=== PATIENT | male | born 1955 | race Caucasian/White ===

== ENCOUNTER 2016-11-01 19:37 | Inpatient (IN) | payer OTHER ==
[2016-11-01 19:50] VITALS: BMI 16.7
--- NOTE | 2016-11-01 20:17 | PDOC ---
History of Present Illness - General History Source: Patient <Kulwant Wong - Last Filed: 11/02/16 00:26> - General History Source: Patient Exam Limitations: No Limitations - History of Present Illness Initial Comments: 11/01/16 21:05 The patient is a 61 year old male with significant past medical history of hypertension, COPD, GERD, prostate CA, and EtOH abuse who presents to the ED with few days of lower leg weakness. Patient was seen here in the ER for weakness and intoxicated where he was admitted on 09/05 and discharged on 09/14. After his discharge he was sent to [facility] for subacute therapy and recently discharge there about 2 weeks ago and sent home. Patient admits he started drink alcohol again after his discharge. His last drink was about 48 hours ago. He reports multiple falls and feeling somewhat dizzy for the past 2 weeks, which he states is related to drinking alcohol. He denies headache, LOC, paresthesias of the legs, and recent trauma to head within the past month. Patient reports his baseline is able to ambulate without assistance. However, for the past few days he developed weakness in his lower extremities with bladder/bowel incontinence. As per sister, at bedside, patient has not been himself recently and appears to be somewhat confused. The patient denies fever, diaphoresis, chills, cough, SOB, and chest pain. The patient denies abdominal pain, nausea, vomiting, and diarrhea. The patient denies dysuria, hematuria, urgency, and frequency. Allergies: NKDA Social History: Current smoker (PPD); EtOH abuse; cocaine use Other Past Medical History: subarachnoid hemorrhage after a fall, ulcers in esophagus, hepatomegaly, and anxiety Past Surgical History: Appendectomy PCP: Dr. Lorenzo Beltran <Doris Zuniga - Last Filed: 11/02/16 00:45> - General Chief Complaint: Weakness Stated Complaint: WEAKNESS Time Seen by Provider: 11/01/16 20:13 Past History - Past Medical History Cancer: Yes (prostate) CVA: (SUBARACHNOID HEMORRHAGE AFTER A FALL) COPD: Yes GI Disorders: Yes (gerd, ulcers in esophagus) Disorders: No HTN: Yes Liver Disease: (HEPATOMEGALY; ABNORMAL LIVER FUNCTION TEST) Psychiatric Problems: Yes (anxiety) Thyroid Disease: No Other medical history: ETOH/Cocaine substance abuse - Surgical History Appendectomy: Yes (at age 3) - Immunization History Immunization Up to Date: Yes - Psycho/Social/Smoking Cessation Hx Anxiety: Yes Suicidal Ideation: No Smoking History: Unknown if ever smoked Have you smoked in the past 12 months: Yes Number of Cigarettes Smoked Daily: 30 'Breaking Loose' booklet given: 09/05/16 Hx Alcohol Use: Yes Drug/Substance Use Hx: Yes Substance Use Type: Alcohol, Cocaine Hx Substance Use Treatment: No <Kulwant Wong - Last Filed: 11/02/16 00:26> <Doris Zuniga - Last Filed: 11/02/16 00:45> - Past Medical History Allergies/Adverse Reactions: Allergies Allergy/AdvReac Type Severity Reaction Status Date / Time No Known Allergies Allergy Verified 11/01/16 19:45 Home Medications: Ambulatory Orders Escitalopram Oxalate [Lexapro -] 20 mg PO DAILY 09/05/16 Pantoprazole Sodium [Protonix -] 40 mg PO DAILY 09/05/16 Multivitamins [Multivit ([facility] Formulary)] 1 tab PO DAILY #60 tab 09/14/16 Thiamine HCl [Vitamin B1 -] 100 mg PO DAILY #30 tablet 09/14/16 Review of Systems - Review of Systems Able to Perform ROS?: Yes Comments:: 11/01/16 21:05 CONSTITUTIONAL: Absent: fever, chills, diaphoresis, malaise, loss of appetite HEENT: Absent: rhinorrhea, nasal congestion, throat pain, throat swelling, difficulty swallowing, mouth swelling, ear pain, eye pain, visual Changes CARDIOVASCULAR: Absent: chest pain, syncope, palpitations, irregular heart rate, lightheadedness , peripheral edema RESPIRATORY: Absent: cough, shortness of breath, dyspnea with exertion, orthopnea, wheezing, stridor, hemoptysis GASTROINTESTINAL: Absent: abdominal pain, abdominal distension, nausea, vomiting, diarrhea, constipation, melena, hematochezia GENITOURINARY: Absent: dysuria, frequency, urgency, hesitancy, hematuria, flank pain, genital pain MUSCULOSKELETAL: Absent: myalgia, arthralgia, joint swelling SKIN: Absent: rash, itching, pallor NEUROLOGIC: +bladder/bowel incontinence, dizziness, lower extremities weakness Absent: headache, focal paresthesias, seizure PSYCHIATRIC: Absent: anxiety, depression, suicidal or homicidal ideation, hallucinations. <Doris Zuniga - Last Filed: 11/02/16 00:45> *Physical Exam - Vital Signs Last Vital Signs Temp Pulse Resp BP Pulse Ox 97.6 F 122 H 20 120/77 99 11/01/16 19:43 11/01/16 19:43 11/01/16 19:43 11/01/16 19:43 11/01/16 19:43 <Kulwant Wong - Last Filed: 11/02/16 00:26> - Vital Signs Last Vital Signs Temp Pulse Resp BP Pulse Ox 97.6 F 122 H 20 120/77 99 11/01/16 19:43 11/01/16 19:43 11/01/16 19:43 11/01/16 19:43 11/01/16 19:43 - Physical Exam Comments: 11/01/16 21:05 GENERAL: Well developed, well nourished. Awake and alert. No acute distress. HEENT: Normocephalic, atraumatic. No racoon or quevedo signs. PERRLA, EOMI. No conjunctival pallor. Sclera are non-icteric. Moist mucous membranes. Oropharynx is clear. No hemotympanum. NECK: Supple. Full ROM. No JVD. Carotid pulses 2+ and symmetric, without bruits. No thyromegaly. No lymphadenopathy. CARDIOVASCULAR: Regular rate and rhythm. No murmurs, rubs, or gallops. Distal pulses are 2+ and symmetric. PULMONARY: No evidence of respiratory distress. Lungs clear to auscultation bilaterally. No wheezing, rales or rhonchi. ABDOMINAL: Soft. Non-tender. Non-distended. No rebound or guarding. No organomegaly. Normoactive bowel sounds. MUSCULOSKELETAL Limited ROM of left leg secondary to decreased muscle strength. No bony deformities or tenderness. No CVA tenderness. EXTREMITIES: No cyanosis. No clubbing. +1 pitting edema ankles bilaterally. No calf tenderness. SKIN: Warm and dry. Normal capillary refill. No rashes. No jaundice. Scattered scabbing and light ecchymosis throughout the body. NEUROLOGICAL: Alert, awake, appropriate. Left leg decreased plantar and dorsiflexion. 3/5 muscle strength of the left lower extremity. Good passive ROM. Active ROM is limited due to muscle strength. Good achilles reflex and patellar reflex. Sensation intact. Normal speech. PSYCHIATRIC: Cooperative. Good eye contact. Appropriate mood and affect. <Doris Zuniga - Last Filed: 11/02/16 00:45> Heart Score/ECG Review - ECG Impressions Comment:: 11/01/16 22:01 NSR @89bpm Prolonged QT Abnormal ECG <Doris Zuniga - Last Filed: 11/02/16 00:45> ED Treatment Course - LABORATORY CBC & Chemistry Diagram: 11/01/16 21:03 11/01/16 21:03 <Kulwant Wong - Last Filed: 11/02/16 00:26> - LABORATORY CBC & Chemistry Diagram: 11/01/16 21:03 11/01/16 21:03 - RADIOLOGY Radiograph Interpretation: 11/02/16 00:13 EXAM: CT LUMBAR SPINE WITHOUT CONTRAST Reviewed by Imaging coding consultant: Degnerative disc disease and posterior disc-osteophyte complex L5-S1 contributing to minimal to moderate canal stenosis. No noncontrast CT evidence of disc herniation. Moderate to marked right neural foraminal stenosis L1-L2. Minimal to moderate bilateral neural foraminal stenosis L5-S1. Congenitally short pedicles incidentally noted. No acute fracture or malalignment. Chronic compression fracture L1. Hemangioma L2. Calcified periportal lymph nodes. <Doris Zuniga - Last Filed: 11/02/16 00:45> Medical Decision Making - Medical Decision Making 11/02/16 00:26 Dr. Wong: The scribe's documentation has been prepared under my direction and personally reviewed by me in its entirery. I confirm that the note above accurately reflects all work, treatment, procedures, and medical decision making performed by me. <Kulwant Wong - Last Filed: 11/02/16 00:26> - Medical Decision Making 11/02/16 00:[address] Cecilia Pond (via answering service) at 24:20 Awaiting call back Patient's case discussed with Dr. Pond at 24:26 <Doris Zuniga - Last Filed: 11/02/16 00:45> *DC/Admit/Observation/Transfer - Discharge Dispostion Admit: Yes <Kulwant Wong - Last Filed: 11/02/16 00:26> - Attestations Scribe Attestion: 11/01/16 21:06 Documentation prepared by Doris Zuniga, acting as medical orderly for Kulwant Wong MD <oDris Zuniga - Last Filed: 11/02/16 00:45> Diagnosis at time of Disposition: Multiple falls, Weakness - Referrals Referrals: Lorenzo Beltran MD [Primary Care Provider] -
[2016-11-01 21:12] LABS: BASOPHIL 0.9 % (0-2.0); EOSINOPHIL 0.1 % (0-4.5); MCHC 34.1 g/dl (32.0-35.9); MEAN CELL VOLUME 102.5 fl (80-96); NEUTROPHILS 71.9 % (42.8-82.8); PLATELET COUNT 185 K/MM3 (134-434); RDW 13.4 % (11.9-15.9); WHITE BLOOD COUNT 6.5 K/mm3 (4.0-10.0)
[2016-11-01 21:22] LABS: INR 1.23 (0.82-1.09); PROTHROMBIN TIME (PATIENT) 13.6 SEC (9.98-11.88)
[2016-11-01 22:44] LABS: URINE APPEARANCE CLEAR; URINE BILIRUBIN NEGATIVE (NEGATIVE); URINE BLOOD NEGATIVE (NEGATIVE); URINE COLOR DKYELLOW; URINE GLUCOSE (UA) NEGATIVE (NEGATIVE); URINE KETONE 1+ (NEGATIVE); URINE LEUK ESTERASE NEGATIVE (NEGATIVE); URINE NITRITE NEGATIVE (NEGATIVE); URINE UROBILINOGEN 4.0 E.U/dl E.U./dl (0.2-1.0)
[2016-11-01 22:49] LABS: URINE PROTEIN 1+ (NEGATIVE)
[2016-11-01 22:53] LABS: URINE BACTERIA RARE /hpf (NONE SEEN); URINE HYALINE CAST 1 /lpf; URINE RBC 2 /hpf (0-3); URINE WBC 1 /hpf (3-5)
[2016-11-01 23:43] LABS: ALBUMIN 3.4 g/dl (3.4-5.0); ALK PHOS 135 U/L (45-117); ANION GAP 17 (8-16); BILIRUBIN,TOTAL 1.7 mg/dL (0.2-1.0); CALCIUM 8.6 mg/dL (8.5-10.1); CO2 27 mmol/L (21-32); CREATININE 0.9 mg/dL (0.7-1.3); GLUCOSE,RANDOM 158 mg/dL (74-106); MAGNESIUM 1.2 mg/dL (1.8-2.4); SGOT/AST 66 U/L (15-37); SGPT/ALT 28 U/L (12-78); TOT PROT 7.2 g/dl (6.4-8.2); TROPONIN I < 0.02 ng/ml (0.00-0.05)
[2016-11-02 05:50] LABS: TROPONIN I < 0.02 ng/ml (0.00-0.05)
[2016-11-02] MEDS ORDERED: chlordiazePOXIDE HCL 25 MG CAPSULE PO PRN (09:14)
[2016-11-02] MEDS: D5-1/2NS+20 MEQ KCL - 1,000 ML IV SCH (11:03)
[2016-11-02] MEDS: PANTOPRAZOLE 40 MG TABLET (FP) PO SCH (11:05)
[2016-11-02] MEDS: THIAMINE HCL 100 MG TABLET (FP) PO SCH (11:05)
[2016-11-02] MEDS: MULTIVITAMINS (DAILY MVI) TABLET (FP) PO SCH (11:05)
[2016-11-02] MEDS: ESCITALOPRAM OXALATE 20 MG TABLET (FP) PO SCH (11:05)
--- NOTE | 2016-11-02 11:30 | PN ---
Progress Note (short form) - Note Progress Note: NEUROSURGERY CONSULT DICTATED Chart reviewed Head and LS spine CT reviewed 61 yo with hypertension, COPD, GERD, prostate CA, and EtOH abuse/dependence who presents to the ED with c/o lower leg weakness. Was at [facility] for weakness and intoxicated where he was admitted on 09/05 and discharged on 09/14 to [facility] for subacute rehab. About 2 weeks ago and sent home and started drinking alcohol again. Last drink was reported to be about 48 hours ago. He reports multiple falls and feeling somewhat dizzy. He denies headache, LOC, paresthesias of the legs, and recent trauma to head within the past month. Patient reports his baseline is able to ambulate without assistance. For the past few days he developed weakness in his L LE with no bladder/bowel incontinence. PE: AF, VSS General- thin, unremarkable, no sign of DVT; tr L ankle edema, 1-2 pulses with good capillary refill CN- intact; Motor- 5/5 ecept L EHL/TA/ev 2-3; Sensation- intact to LT and proprioception; DTR-2-3+ B except diminished B ankle reflex Back- no tenderness, Negative SLR to [address]- moderate atrophy and periventricular small vessel dz, no bleed, no HCP LS spine CT- chronic L1 compression fx (anterior wedging of 35%) with L1-2 foramenal narrowing; L5-S1 broad based disc bulge with marked DDD, mild R > L foramenal narrowing; No significant left sided compressive pathology noted Cr- 0.9, lactic acid- 2.685 Chronic L1 osteoporotic (alcohol/nutrition related also) fracture L5-S1 DDD 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
--- NOTE | 2016-11-02 12:09 | HP ---
Admitting History and Physical - Primary Care Physician PCP: Lorenzo Beltran - Admission Chief Complaint: weakness History of Present Illness: ER HISTORY 11/01/16 21:05 The patient is a 61 year old male with significant past medical history of hypertension, COPD, GERD, prostate CA, and EtOH abuse who presents to the ED with few days of lower leg weakness. Patient was seen here in the ER for weakness and intoxicated where he was admitted on 09/05 and discharged on 09/14. After his discharge he was sent to [facility] for subacute therapy and recently discharge there about 2 weeks ago and sent home. Patient admits he started drink alcohol again after his discharge. His last drink was about 48 hours ago. He reports multiple falls and feeling somewhat dizzy for the past 2 weeks, which he states is related to drinking alcohol. He denies headache, LOC, paresthesias of the legs, and recent trauma to head within the past month. Patient reports his baseline is able to ambulate without assistance. However, for the past few days he developed weakness in his lower extremities with bladder/bowel incontinence. As per sister, at bedside, patient has not been himself recently and appears to be somewhat confused. Pt seen by me on the floors- After dc from [facility] about three weeks ago, he resumed drinking again- his last drink was on Sunday and last cigarette was on Sunday. He was able to walk on his own without any ambulatory aides upon dc from [place]. he states that his left leg was weak after dc from [facility], he also has been incontinent of bladder and bowel for about a week. His nutritional status has declined when he was released from SNF. He admits he has been feeling weak and that he feels strong today after receiving iv fluids and eating meals. He lives by himself He fell about 4 times for about 2 weeks. History Source: Patient Limitations to Obtaining History: No Limitations - Past Medical History QUALITY CONTROL DIRECTOR: Yes: Other (Subarrachnoid hemorrhage from fall with head trauma) Cardiovascular: Yes: HTN Pulmonary: Yes: COPD Renal/: Yes: BPH, Cancer (PROSTATE) Psych: Yes: Depression ( OF PARTNER) - Smoking History Smoking history: Former smoker Have you smoked in the past 12 months: Yes Aproximately how many cigarettes per day: 30 - Alcohol/Substance Use Hx Alcohol Use: Yes History of Substance Use: reports: Cocaine - Social History ADL: Family Assistance History of Recent Travel: No Home Medications - Allergies Allergies/Adverse Reactions: Allergies Allergy/AdvReac Type Severity Reaction Status Date / Time No Known Allergies Allergy Verified 11/01/16 19:45 - Home Medications Home Medications: Ambulatory Orders Escitalopram Oxalate [Lexapro -] 20 mg PO DAILY 09/05/16 Pantoprazole Sodium [Protonix -] 40 mg PO DAILY 09/05/16 Multivitamins [Multivit ([facility] Formulary)] 1 tab PO DAILY #60 tab 09/14/16 Thiamine HCl [Vitamin B1 -] 100 mg PO DAILY #30 tablet 09/14/16 Family Disease History - Family Disease History Family Disease History: Heart Disease: Father, Sister Review of Systems - Review of Systems Constitutional: reports: Weakness. denies: Chills, Fever, Loss of Appetite Physical Examination Vital Signs: Vital Signs Temperature 97.9 F 11/02/16 07:00 Pulse Rate 83 11/02/16 07:00 Respiratory Rate 20 11/02/16 07:00 Blood Pressure 150/89 11/02/16 07:00 O2 Sat by Pulse Oximetry (%) 99 11/02/16 06:56 Constitutional: Yes: No Distress, Calm Cardiovascular: Yes: Regular Rate and Rhythm Respiratory: Yes: Diminished Gastrointestinal: Yes: Normal Bowel Sounds, Soft. No: Distention, Tenderness Edema: No Neurological: Yes: Alert, Oriented, Weakness, Other (left foot drop +,strength is good on flexion but weak extension of left foot.Sensation normal). No: Numbness, Tremors Psychiatric: Yes: Alert, Oriented Imaging - Results Chest X-ray: Image Reviewed Cat Scan: Report Reviewed (CT head- negative, CT LS spine -- DJD, osteoporosis, disc bulge, spinal stenosis, compression fracture) Problem List - Problems (1) Depression Code(s): F32.9 - MAJOR DEPRESSIVE DISORDER, SINGLE EPISODE, UNSPECIFIED Qualifiers: Depression Type: major depressive disorder Major depression recurrence : recurrent Psychotic features: without psychotic features (2) H/O fall Code(s): Z91.81 - HISTORY OF FALLING (3) Multiple falls Code(s): R29.6 - REPEATED FALLS (4) Weakness Code(s): R53.1 - WEAKNESS (5) HTN (hypertension) Code(s): I10 - ESSENTIAL (PRIMARY) HYPERTENSION Qualifiers: Hypertension type: essential hypertension Qualified Code(s): I10 - Essential (primary) hypertension (6) Peroneal neuropathy Code(s): G57.30 - LESION OF LATERAL POPLITEAL NERVE, UNSPECIFIED LOWER LIMB Qualifiers: Laterality: left Qualified Code(s): G57.32 - Lesion of lateral popliteal nerve, left lower limb (7) Alcohol dependence with uncomplicated withdrawal Code(s): F10.230 - ALCOHOL DEPENDENCE WITH WITHDRAWAL, UNCOMPLICATED Assessment/Plan PLAN -- CT scan results discussed with pt -- counselled the patient that alcohol intake is likely cause of weakness -- spoke with Neurosurgery -- Physiatry eval for EMG -- Librium as needed- does not appear to be in withdrawal. -- Nutrition counselling -- check folate, B12 -- no sensory deficits -- PT eval -- DVT prophylaxis-- Lovenox
--- NOTE | 2016-11-02 14:14 | EKG ---
Test Reason : Blood Pressure : / mmHG Vent. Rate : 089 BPM Atrial Rate : 089 BPM P-R Int : 124 ms QRS Dur : 078 ms QT Int : 412 ms P-R-T Axes : 073 061 070 degrees QTc Int : 501 ms NORMAL SINUS RHYTHM PROLONGED QT ABNORMAL ECG WHEN COMPARED WITH ECG OF 05-SEP-2016 03:47, NO SIGNIFICANT CHANGE WAS FOUND Confirmed by SHIRLEY PERRY MD ([id number]) on 11/02/2016 2:13:59 PM Referred By: Confirmed By:SHIRLEY PERRY MD
--- NOTE | 2016-11-02 15:09 | CONS ---
DATE OF CONSULTATION: 11/02/2016 REQUESTING PHYSICIAN: Cecilia Pond MD CHIEF COMPLAINT: Left lower extremity weakness. HISTORY OF PRESENT ILLNESS: The patient is a 61-year-old, right-handed male with history of alcohol abuse/dependence, COPD, hypertension, gastroesophageal reflux disease, and prostate CA who had complained of a several-day history of increasing leg weakness. The patient was admitted about 2 months ago and was discharged in early September to [facility] for rehabilitation. He went home a couple weeks ago and started drinking alcohol again. He has been falling at home. He stated that even before his prior admission, he was falling, likely secondary to intoxication. He has also used recreational drugs in the past but he stated that he has not used any for the last 2 months. He was feeling dizzy. He denied any headache, loss of consciousness, paresthesia, numbness of the legs or sciatica. He has no lower back pain. He has no bowel or bladder incontinence. Weakness has developed over the last few days by his report, even though it could have been longer. He denies any fever, chills or recent infection. PAST MEDICAL HISTORY: COPD, hypertension, gastroesophageal reflux disease, prostate CA, alcohol and polysubstance dependence/abuse. CURRENT MEDICATIONS: Lexapro, Librium, vitamin C, Protonix, thiamine. ALLERGIES: There are no known drug allergies. SOCIAL HISTORY: He smokes cigarettes and drinks alcohol, but he stated that he has not drunk any alcohol for the last 2 days. He has used cocaine in the past, most recently 2 months ago. He does not work. FAMILY HISTORY: Noncontributory. REVIEW OF SYSTEMS: Otherwise negative for other major cardiovascular, pulmonary, gastrointestinal, genitourinary, endocrinological, neurological, and psychological problems except for the above. PHYSICAL EXAMINATION: Vital Signs: Temperature is 98.3, blood pressure is 134/85 with pulse rate of 92, O2 saturation 99% on room air. General: He is sitting on the bed side. HEENT: Normocephalic, atraumatic, anicteric. Neck: Supple with no nuchal rigidity. Coronary: Regular rhythm. Lungs: Clear bilaterally. Abdomen: Benign. Extremities: No signs of DVT even though he does have trace ankle edema on the left. He has a negative Homans sign. Pulses are 1 to 2+ and symmetric and he has good capillary refill. Neurologic: He is awake and alert, oriented x4. He is conversant and does not have any speech difficulties. Memory appears to be intact. Cranial nerve examination is intact. Motor examination shows 5/5 strength except left tibialis anterior in eversion, which is 2-3/5. Sensory examination is intact to light touch and proprioception. Deep tendon reflexes are 2 to 3+ throughout except for diminished bilateral ankle reflexes. Gait was not tested for safety reasons. Back: Examination of the lower back showed no tenderness to percussion or palpation. He has a negative straight leg raise to 70 degrees bilaterally. LABORATORY EXAMINATION: White blood cell count is 6500, hemoglobin is 13.6 and platelet count is 185,000. INR is 1.23. Serum sodium is 136 and potassium is 3.5. Most recent lactic acid is 1.218. BUN is 10 and creatinine 0.9. LFTs are mildly elevated. Troponin is less than 0.02. Urinalysis shows 2 RBCs and [address] scan of the head demonstrated moderate cerebral atrophy and periventricular small vessel disease. There is no acute blood. There is no fracture. CT scan of the lumbar spine demonstrated a chronic L1 compression fracture with foraminal narrowing, right greater than left, associated with disk bulge. There is also marked degenerative disk space narrowing at L5-S1 with a broad-based disk bulge and facet arthrosis. There is right greater than left L5-S1 foraminal narrowing. There is no sign of severe central stenosis or left-sided nerve root impingement at any level. IMPRESSION: 1. 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 2. Alcohol dependence/abuse. 3. Hypertension. 4. Chronic obstructive pulmonary disease. 5. History of cocaine use. RECOMMENDATIONS: The patient presents with a several-day history of lower extremity weakness. He had been falling even prior to the weakness having developed in the last 2 days. This is likely secondary to his alcohol abuse/dependence. The patient has weakness in left dorsiflexion, especially tibialis anterior, extensor hallucis longus, and left eversion but not left inversion. There is no associated significant sensory deficit or any radicular pain. Also, he has intact bilateral patellar reflexes. This is more likely peroneal neuropathy or alcoholic left femoral neuropathy rather than lumbar radiculopathy as a result. There is also no left-sided impingement on the CT scan of the lumbar spine. I will request a rehabilitation consult and possible EMG. In the meantime, I will start him on gabapentin for his neuropathic symptoms. No neurosurgical intervention is recommended for this gentleman with multiple medical issues, especially with his degree of polysubstance abuse/dependence. The above was discussed with the patient at bedside. He was strongly urged to quit smoking and drinking completely. ZACARIAS GOMEZ M.D. JANETT/[id number]
[2016-11-03] MEDS: D5-1/2NS+20 MEQ KCL - 1,000 ML IV SCH (08:00)
--- NOTE | 2016-11-03 08:03 | PN ---
Progress Note (short form) - Note Progress Note: NEUROSURGERY Some L foot cramps PE: AF, VSS General- thin, unremarkable, no sign of DVT; tr L ankle edema, 1-2 pulses with good capillary refill CN- intact; Motor- 5/5 ecept L EHL/TA/ev 2-3; Sensation- intact to LT and proprioception; DTR-2-3+ B except diminished B ankle reflex Back- no tenderness, Negative SLR to [address]- moderate atrophy and periventricular small vessel dz, no bleed, no HCP LS spine CT- chronic L1 compression fx (anterior wedging of 35%) with L1-2 foramenal narrowing; L5-S1 broad based disc bulge with marked DDD, mild R > L foramenal narrowing; No significant left sided compressive pathology noted Chronic L1 osteoporotic (alcohol/nutrition related also) fracture L5-S1 DDD L peroneal neuropathy vs alchoholic L femoral neuropathy; much less likely radiculopathy given no back pain, sciatica or sensory deficits Consult PMR- possible EMG/NCS EtOH dependence/HTN/COPD EtOH cessation urged Smoking cessation urged Added Neurontin Baseline arterial doppler r/o PAD as patient has some risk factors
--- NOTE | 2016-11-03 08:37 | PN ---
Progress Note (short form) - Note Progress Note: Subjective Patient seen and examined. Chart reviewed. Feels better Eating better Wants to go back to [facility] for short time rehab Objective Last Vital Signs Temp Pulse Resp BP Pulse Ox 98.8 F 81 20 141/89 99 11/03/16 05:52 11/03/16 05:52 11/03/16 05:52 11/03/16 05:52 11/02/16 21:00 Problem List - Problems (1) Depression Code(s): F32.9 - MAJOR DEPRESSIVE DISORDER, SINGLE EPISODE, UNSPECIFIED Qualifiers: Depression Type: major depressive disorder Major depression recurrence : recurrent Psychotic features: without psychotic features (2) H/O fall Code(s): Z91.81 - HISTORY OF FALLING (3) Multiple falls Code(s): R29.6 - REPEATED FALLS (4) Weakness Code(s): R53.1 - WEAKNESS (5) HTN (hypertension) Code(s): I10 - ESSENTIAL (PRIMARY) HYPERTENSION Qualifiers: Hypertension type: essential hypertension Qualified Code(s): I10 - Essential (primary) hypertension (6) Peroneal neuropathy Code(s): G57.30 - LESION OF LATERAL POPLITEAL NERVE, UNSPECIFIED LOWER LIMB Qualifiers: Laterality: left Qualified Code(s): G57.32 - Lesion of lateral popliteal nerve, left lower limb (7) Alcohol dependence with uncomplicated withdrawal Code(s): F10.230 - ALCOHOL DEPENDENCE WITH WITHDRAWAL, UNCOMPLICATED LABS: CBC, BMP 11/01/16 21:03 11/03/16 06:00 Physical Exam Constitutional: Yes: No Distress, Calm Cardiovascular: Yes: Regular Rate and Rhythm Respiratory: Yes: Diminished Gastrointestinal: Yes: Normal Bowel Sounds, Soft. No: Distention, Tenderness Edema: No Neurological: Yes: Alert, Oriented, Weakness No: Numbness, Tremors Psychiatric: Yes: Alert, Oriented Assessment and Plan Overall better Continue mild hydration Physical therapy Fix electrolytes Patient requests nicotine patch Will follow Documentation prepared by Nisha Peguero, acting as a biomedical instrument technician for Lorenzo Beltran MD.
[2016-11-03] MEDS: PANTOPRAZOLE 40 MG TABLET (FP) PO SCH (09:16)
[2016-11-03] MEDS: MULTIVITAMINS (DAILY MVI) TABLET (FP) PO SCH (09:16)
[2016-11-03] MEDS: THIAMINE HCL 100 MG TABLET (FP) PO SCH (09:16)
[2016-11-03] MEDS: ESCITALOPRAM OXALATE 20 MG TABLET (FP) PO SCH (09:17)
[2016-11-03] MEDS: ENOXAPARIN NA (PORCINE) 40 MG/0.4 ML DISP.SYRIN SQ SCH (09:17)
[2016-11-03 09:46] LABS: ALBUMIN 2.7 g/dl (3.4-5.0); ALK PHOS 133 U/L (45-117); ANION GAP 14 (8-16); BILIRUBIN,TOTAL 0.8 mg/dL (0.2-1.0); CALCIUM 8.1 mg/dL (8.5-10.1); CO2 23 mmol/L (21-32); CREATININE 0.4 mg/dL (0.7-1.3); GLUCOSE,RANDOM 93 mg/dL (74-106); SGOT/AST 62 U/L (15-37); SGPT/ALT 26 U/L (12-78); TOT PROT 5.6 g/dl (6.4-8.2)
[2016-11-03] MEDS ORDERED: MELATONIN 5 MG TABLETS PO PRN (09:49)
[2016-11-03] MEDS ORDERED: POTASSIUM CHLORIDE TABS 20 MEQ TABLET.ER (FP) PO ONE ×2 (09:50→12:00)
[2016-11-03 10:48] LABS: ALBUMIN 2.6 g/dl (3.4-5.0); ALK PHOS 120 U/L (45-117); ANION GAP 11 (8-16); CALCIUM 7.8 mg/dL (8.5-10.1); CO2 25 mmol/L (21-32); CREATININE 0.6 mg/dL (0.7-1.3); GLUCOSE,RANDOM 124 mg/dL (74-106); SGOT/AST 58 U/L (15-37); SGPT/ALT 27 U/L (12-78)
[2016-11-03 10:49] LABS: BILIRUBIN,TOTAL 0.7 mg/dL (0.2-1.0); TOT PROT 5.5 g/dl (6.4-8.2)
[2016-11-03] MEDS: NICOTINE 21 MG/24 HOURS TOPICAL PATCH TD SCH (12:18)
[2016-11-03] MEDS: GABAPENTIN 100 MG CAPSULE (FP) PO SCH ×2 (14:25→22:17)
--- NOTE | 2016-11-03 15:18 | CONS ---
PHYSICAL MEDICINE REHABILITATION CONSULTATION DATE OF ADMISSION: 11/02/2016 DATE OF CONSULTATION AND ELECTRODIAGNOSTIC STUDIES: 11/03/2016 HISTORY OF PRESENT ILLNESS: The patient is a 61-year-old man with a past medical history of hypertension, COPD, gastroesophageal reflux disease, prostate cancer and alcohol abuse who was admitted with difficulty walking and left foot weakness. The patient had apparently recently been hospitalized and went to [facility] for rehabilitation with generalized weakness, dehydration, electrolyte abnormalities. He went to [facility] and apparently was discharged home, able to ambulate but developed weakness about 10 days ago in the left foot with inability to lift the left foot. On admission, he underwent multiple imaging studies including a CT of the head which showed no acute intracranial pathology as well as a CT of the lumbar spine, which did show some pathology but none isolated on the left. There was a disk bulge with probable right L5 nerve impingement but nothing on the left side to explain his weakness. The patient was evaluated by Dr. Primitivo Webb from Neurosurgery, who felt that this was peripheral and probably due to a peroneal neuropathy. The patient was referred for electrodiagnostic evaluation. He continues to have problems lifting his foot but has no other weakness. No numbness. He does note that he often crosses his legs and has been avoiding this. He has an elevated MCV of 102 but a normal hemoglobin at 13.6 and his WBC is normal at 6.5. His chemistry demonstrated an elevation in his ammonia level. His BNP was elevated at 2180 but he had a normal B12 level of 740. He does note that he is taking B12 orally and he has lost a lot of weight. His B12 level on prior hospitalization was not taken but again, it was normal. His folate level was 7, within normal limits. He did have some elevation in his CA 19-9 antigen. He had a low total protein on prior admission and on his current admission, it is 5.5. His albumin level is low at 2.6. The patient also has a low creatinine level of 0.6. The patient was seen by Physical Therapy and was able to ambulate with a walker for 150 feet with imbalance, close contact guard for [id number] and supervision. REVIEW OF PAST MEDICAL AND SURGICAL HISTORY: As above. SOCIAL HISTORY: The patient lives alone in an apartment. He has an elevator for access. He states that pre-morbidly, he was independent. CURRENT FUNCTION: As above. REVIEW OF SYSTEMS: No dizziness or lightheadedness. No blurry vision or double vision. No nausea or vomiting, no difficulty swallowing or chewing. No chest pain or shortness of breath. No fever or chills. He has no numbness or tingling, no back pain. He does state that he has incontinence of bowel and bladder which is new. He has lost a lot of weight. He usually weighs about 130 but now weighs less than 100 pounds. PHYSICAL EXAMINATION: General: Thin, cachectic man seen both sitting as well as standing and taking a few steps, transferring from a wheelchair to a bed. HEENT: Normocephalic and atraumatic. Extraocular muscles appear intact. Neck is supple. Extremities: Without any calf tenderness or edema. Neuromuscular examination: He is awake, alert, oriented x 3. Cranial nerves 2 through 12 grossly intact. He has good strength and range in his upper extremities as well as his right lower extremity and proximal left lower extremity, including his knee flexion, knee extension and plantar flexors. However, he is weak in his dorsiflexors and evertors of the left foot and he has diminished sensation in the deep peroneal distribution. He has absent ankle jerk but otherwise, his reflexes appear normal. He has normal cold temperature and vibratory sense except for distally in the feet, and his gait is unsteady. For results of his EMG/nerve conduction studies, please refer to report for details. OVERALL IMPRESSION: 1. Left severe peroneal neuropathy, most likely at the fibular head. 2. Underlying axonal sensorimotor polyneuropathy of uncertain etiology, possibly nutritional deficiency. 3. Gait disorder. 4. Left foot drop due to peroneal neuropathy. 5. History of alcohol abuse. 6. History of gastroesophageal reflux disease. 7. Multiple falls. 8. Chronic obstructive pulmonary disease. 9. Hypoalbuminemia. PLAN: 1. Continue physical therapy. 2. Out of bed to chair. 3. Nutritional supplement. 4. Workup for etiology of underlying neuropathy. 5. Avoid leg crossing and pressure at the left fibular head. 6. Left custom-made ankle/foot arthrosis as an outpatient. Thank you for this referral. LISA SCOTT M.D. [id number]
[2016-11-03] MEDS ORDERED: IBUPROFEN 600 MG TABLET (FP) PO PRN (17:48)
[2016-11-04] MEDS: D5-1/2NS+20 MEQ KCL - 1,000 ML IV SCH ×2 (02:22→10:01)
[2016-11-04] MEDS: GABAPENTIN 100 MG CAPSULE (FP) PO SCH ×3 (06:03→22:22)
--- NOTE | 2016-11-04 08:14 | PN ---
Progress Note (short form) - Note Progress Note: NEUROSURGERY Some L foot cramps, overall better PE: AF, VSS General- thin, unremarkable, no sign of DVT; tr L ankle edema, 1-2 pulses with good capillary refill CN- intact; Motor- 5/5 ecept L EHL/TA/ev 2-3; Sensation- intact to LT and proprioception; DTR-2-3+ B except diminished B ankle reflex Back- no tenderness, Negative SLR to [address]- moderate atrophy and periventricular small vessel dz, no bleed, no HCP LS spine CT- chronic L1 compression fx (anterior wedging of 35%) with L1-2 foramenal narrowing; L5-S1 broad based disc bulge with marked DDD, mild R > L foramenal narrowing; No significant left sided compressive pathology noted Arterial doppler with mild , but no significant flow compromise L LE Chronic L1 osteoporotic (alcohol/nutrition related also) fracture L peroneal neuropathy on EMG Appreciate Dr Kaur's input EtOH dependence/HTN/COPD EtOH and smoking cessation urged On Neurontin No neurosurgical intervention recommended nor indicated
[2016-11-04] MEDS: NICOTINE 21 MG/24 HOURS TOPICAL PATCH TD SCH (09:55)
[2016-11-04] MEDS: ENOXAPARIN NA (PORCINE) 40 MG/0.4 ML DISP.SYRIN SQ SCH (09:55)
[2016-11-04] MEDS: ESCITALOPRAM OXALATE 20 MG TABLET (FP) PO SCH (09:58)
[2016-11-04] MEDS: MULTIVITAMINS (DAILY MVI) TABLET (FP) PO SCH (09:58)
[2016-11-04] MEDS: PANTOPRAZOLE 40 MG TABLET (FP) PO SCH (09:58)
[2016-11-04] MEDS: THIAMINE HCL 100 MG TABLET (FP) PO SCH (10:00)
--- NOTE | 2016-11-04 12:46 | PN ---
Progress Note, Physician Chief Complaint: has ggod appetite no abd pain ambulating without difficulty - Current Medication List Current Medications: Active Medications Chlordiazepoxide HCl (Librium -) 25 mg PO Q6H PRN PRN Reason: WITHDRAWAL(CONT SUBST) Enoxaparin Sodium (Lovenox -) 40 mg SQ DAILY [facility] Last Admin: 11/04/16 09:55 Dose: 40 mg Escitalopram Oxalate (Lexapro -) 20 mg PO DAILY [facility] Last Admin: 11/04/16 09:58 Dose: 20 mg Gabapentin (Neurontin -) 100 mg PO TID [facility] Last Admin: 11/04/16 06:03 Dose: 100 mg Potassium Chloride/Dextrose/Sod Cl (D5-1/2ns+20 Meq Kcl -) 1,000 mls @ 83 mls/ hr IV ASDIR [facility] Last Admin: 11/04/16 10:01 Dose: Not Given Ibuprofen (Motrin -) 600 mg PO Q8H PRN PRN Reason: PAIN Last Admin: 11/03/16 22:29 Dose: 600 mg Magnesium Sulfate (Magnesium Sulfate) 2 gm IVPB ONCE ONE Stop: 11/04/16 13:01 Melatonin (Melatonin) 5 mg PO HS PRN PRN Reason: INSOMNIA Multivitamins/Minerals/Vitamin C (Tab-A-Vit -) 1 tab PO DAILY [facility] Last Admin: 11/04/16 09:58 Dose: 1 tab Nicotine (Nicoderm Patch -) 21 mg TD DAILY [facility] Last Admin: 11/04/16 09:55 Dose: 21 mg Pantoprazole Sodium (Protonix -) 40 mg PO DAILY [facility] Last Admin: 11/04/16 09:58 Dose: 40 mg Thiamine HCl (Vitamin B1 -) 100 mg PO DAILY [facility] Last Admin: 11/04/16 10:00 Dose: 100 mg - Objective Vital Signs: Vital Signs Temperature 98 F 11/04/16 05:30 Pulse Rate 82 11/04/16 05:30 Respiratory Rate 18 11/04/16 05:30 Blood Pressure 148/79 11/04/16 05:30 O2 Sat by Pulse Oximetry (%) 99 11/03/16 21:00 Constitutional: Yes: No Distress Cardiovascular: Yes: Regular Rate and Rhythm Respiratory: Yes: CTA Bilaterally Gastrointestinal: Yes: Normal Bowel Sounds, Soft. No: Tenderness Edema: No Labs: CBC, BMP 11/03/16 10:00 INR, PTT INR 1.23 (0.82-1.09) H 11/01/16 21:03 Problem List - Problems (1) Depression Code(s): F32.9 - MAJOR DEPRESSIVE DISORDER, SINGLE EPISODE, UNSPECIFIED Qualifiers: Depression Type: major depressive disorder Major depression recurrence : recurrent Psychotic features: without psychotic features (2) H/O fall Code(s): Z91.81 - HISTORY OF FALLING (3) Multiple falls Code(s): R29.6 - REPEATED FALLS (4) Weakness Code(s): R53.1 - WEAKNESS (5) HTN (hypertension) Code(s): I10 - ESSENTIAL (PRIMARY) HYPERTENSION Qualifiers: Hypertension type: essential hypertension Qualified Code(s): I10 - Essential (primary) hypertension (6) Peroneal neuropathy Code(s): G57.30 - LESION OF LATERAL POPLITEAL NERVE, UNSPECIFIED LOWER LIMB Qualifiers: Laterality: left Qualified Code(s): G57.32 - Lesion of lateral popliteal nerve, left lower limb (7) Alcohol dependence with uncomplicated withdrawal Code(s): F10.230 - ALCOHOL DEPENDENCE WITH WITHDRAWAL, UNCOMPLICATED Assessment/Plan PLAN -- counselled the patient that alcohol intake is likely cause of weakness -- spoke with Neurosurgery -- EMG noted -- Librium as needed- does not appear to be in withdrawal. -- Nutrition counselling -- no sensory deficits -- PT eval -- DVT prophylaxis-- Lovenox
[2016-11-04] MEDS ORDERED: MAGNESIUM SULF 50% (8.12 MEQ/2 ML-1 GM VIAL) IVPB ONE (13:00)
[2016-11-04] MEDS: amLODIPine BESYLATE 10 MG TABLET (FP) PO SCH (17:40)
[2016-11-05] MEDS: GABAPENTIN 100 MG CAPSULE (FP) PO SCH ×2 (06:21→15:41)
--- NOTE | 2016-11-05 10:15 | PN ---
Progress Note (short form) - Note Progress Note: NEUROSURGERY Feels improved PE: AF, VSS General- thin, unremarkable, no sign of DVT; tr L ankle edema CN- intact; Motor- 5/5 ecept L EHL/TA/ev 3; Sensation- intact to LT and proprioception Back- no tenderness, Negative SLR to [address]- moderate atrophy and periventricular small vessel dz, no bleed, no HCP LS spine CT- chronic L1 compression fx (anterior wedging of 35%) with L1-2 foramenal narrowing; L5-S1 broad based disc bulge with marked DDD, mild R > L foramenal narrowing; No significant left sided compressive pathology noted Arterial doppler with mild , but no significant flow compromise L LE Chronic L1 osteoporotic (alcohol/nutrition related also) fracture L peroneal neuropathy on EMG Appreciate Dr Kaur's input EtOH dependence/HTN/COPD EtOH and smoking cessation urged On Neurontin [id number] No neurosurgical intervention recommended nor indicated
[2016-11-05] MEDS: ENOXAPARIN NA (PORCINE) 40 MG/0.4 ML DISP.SYRIN SQ SCH (10:19)
[2016-11-05] MEDS: amLODIPine BESYLATE 10 MG TABLET (FP) PO SCH (10:20)
[2016-11-05] MEDS: THIAMINE HCL 100 MG TABLET (FP) PO SCH (10:20)
[2016-11-05] MEDS: NICOTINE 21 MG/24 HOURS TOPICAL PATCH TD SCH (10:20)
[2016-11-05] MEDS: PANTOPRAZOLE 40 MG TABLET (FP) PO SCH (10:20)
[2016-11-05] MEDS: ESCITALOPRAM OXALATE 20 MG TABLET (FP) PO SCH (10:20)
[2016-11-05] MEDS: MULTIVITAMINS (DAILY MVI) TABLET (FP) PO SCH (10:20)
--- NOTE | 2016-11-05 10:42 | PN ---
Progress Note, Physician Chief Complaint: see dc summary - Current Medication List Current Medications: Active Medications Amlodipine Besylate (Norvasc -) 10 mg PO DAILY [facility] Last Admin: 11/05/16 10:20 Dose: Not Given Chlordiazepoxide HCl (Librium -) 25 mg PO Q6H PRN PRN Reason: WITHDRAWAL(CONT SUBST) Enoxaparin Sodium (Lovenox -) 40 mg SQ DAILY [facility] Last Admin: 11/05/16 10:19 Dose: 40 mg Escitalopram Oxalate (Lexapro -) 20 mg PO DAILY [facility] Last Admin: 11/05/16 10:20 Dose: 20 mg Gabapentin (Neurontin -) 100 mg PO TID [facility] Last Admin: 11/05/16 06:21 Dose: 100 mg Ibuprofen (Motrin -) 600 mg PO Q8H PRN PRN Reason: PAIN Last Admin: 11/03/16 22:29 Dose: 600 mg Melatonin (Melatonin) 5 mg PO HS PRN PRN Reason: INSOMNIA Multivitamins/Minerals/Vitamin C (Tab-A-Vit -) 1 tab PO DAILY [facility] Last Admin: 11/05/16 10:20 Dose: 1 tab Nicotine (Nicoderm Patch -) 21 mg TD DAILY [facility] Last Admin: 11/05/16 10:20 Dose: 21 mg Pantoprazole Sodium (Protonix -) 40 mg PO DAILY [facility] Last Admin: 11/05/16 10:20 Dose: 40 mg Thiamine HCl (Vitamin B1 -) 100 mg PO DAILY [facility] Last Admin: 11/05/16 10:20 Dose: 100 mg - Objective Vital Signs: Vital Signs Temperature 98.4 F 11/05/16 06:27 Pulse Rate 83 11/05/16 06:27 Respiratory Rate 18 11/05/16 06:27 Blood Pressure 140/78 11/05/16 06:27 O2 Sat by Pulse Oximetry (%) 99 11/04/16 21:00 Labs: CBC, BMP 11/03/16 10:00 INR, PTT INR 1.23 (0.82-1.09) H 11/01/16 21:03 Problem List - Problems (1) Depression Code(s): F32.9 - MAJOR DEPRESSIVE DISORDER, SINGLE EPISODE, UNSPECIFIED Qualifiers: Depression Type: major depressive disorder Major depression recurrence : recurrent Psychotic features: without psychotic features (2) H/O fall Code(s): Z91.81 - HISTORY OF FALLING (3) Multiple falls Code(s): R29.6 - REPEATED FALLS (4) Weakness Code(s): R53.1 - WEAKNESS (5) HTN (hypertension) Code(s): I10 - ESSENTIAL (PRIMARY) HYPERTENSION Qualifiers: Hypertension type: essential hypertension Qualified Code(s): I10 - Essential (primary) hypertension (6) Peroneal neuropathy Code(s): G57.30 - LESION OF LATERAL POPLITEAL NERVE, UNSPECIFIED LOWER LIMB Qualifiers: Laterality: left Qualified Code(s): G57.32 - Lesion of lateral popliteal nerve, left lower limb (7) Alcohol dependence with uncomplicated withdrawal Code(s): F10.230 - ALCOHOL DEPENDENCE WITH WITHDRAWAL, UNCOMPLICATED
--- NOTE | 2016-11-05 11:25 | DS ---
Physical Examination Vital Signs: Vital Signs Temperature 98.4 F 11/05/16 06:27 Pulse Rate 83 11/05/16 06:27 Respiratory Rate 18 11/05/16 06:27 Blood Pressure 140/78 11/05/16 06:27 O2 Sat by Pulse Oximetry (%) 99 11/04/16 21:00 Constitutional: Yes: No Distress, Calm Cardiovascular: Yes: Regular Rate and Rhythm Respiratory: Yes: CTA Bilaterally Gastrointestinal: Yes: Normal Bowel Sounds, Soft. No: Distention, Tenderness Edema: No Labs: CBC, BMP 11/03/16 10:00 Discharge Summary Reason For Visit: WEAKNESS MULTIPLE FALLS Current Active Problems Cocaine abuse (Acute) Depression (Acute) H/O fall (Acute) Multiple falls (Acute) Peroneal neuropathy (Acute) Subarachnoid hemorrhage following injury (Acute) Weakness (Acute) Hospital Course: Admitted for weakness, multiple falls Has weakness of left foot-- seen by Neurosurgery-- CT had negative EMG showed severe left peroneal neuropathy PT evaluated pt Pt ambuated about 200 feet will need PT outpt alcohol intake and poor nutrition as a cause for neuropathy pt was not in withdrawal stable for dc Condition: Improved - Instructions Referrals: Lorenzo Beltran MD [Primary Care Provider] - Disposition: HOME - Home Medications Comprehensive Discharge Medication List: Ambulatory Orders Escitalopram Oxalate [Lexapro -] 20 mg PO DAILY 09/05/16 Pantoprazole Sodium [Protonix -] 40 mg PO DAILY 09/05/16 Multivitamins [Multivit ([facility] Formulary)] 1 tab PO DAILY #60 tab 09/14/16 Thiamine HCl [Vitamin B1 -] 100 mg PO DAILY #30 tablet 09/14/16 Amlodipine Besylate [Norvasc -] 10 mg PO DAILY #30 tablet 11/05/16 Gabapentin [Neurontin -] 100 mg PO TID #60 capsule 11/05/16 Nicotine Patch [Nicoderm Patch -] 21 mg TD DAILY #30 patch 11/05/16
[2016-11-05 18:01] VITALS: BP 130/74; PULSE 82; TEMP 98.1
== END 2016-11-05 18:58 | disposition home or self-care (01) | DRG 48 ==
LOC: JER 19:37 → JERBED 11-02 01:25 → J7W 11-02 06:36
PROVIDERS: ADMIT Internal Medicine; ATTEND Internal Medicine
DX: G62.89 Other specified polyneuropathies (principal); R53.1 Weakness; G57.32 Lesion of lateral popliteal nerve, left lower limb; I10 Essential (primary) hypertension; J44.9 Chronic obstructive pulmonary disease, unspecified; K21.9 Gastro-esophageal reflux disease without esophagitis; N40.0 Benign prostatic hyperplasia without lower urinary tract symptoms; F41.8 Other specified anxiety disorders; F14.10 Cocaine abuse, uncomplicated; R29.6 Repeated falls; F10.230 Alcohol dependence with withdrawal, uncomplicated; M51.37 Other intervertebral disc degeneration, lumbosacral region; M84.48XS Pathological fracture, other site, sequela; Z85.46 Personal history of malignant neoplasm of prostate; Z87.891 Personal history of nicotine dependence
CPT/HCPCS: 36415; 70450-TC; 71010-TC; 72131-TC; 80053; 80307; 81003; 81015; 82140; 82150; 82550; 82607; 82746; 83605; 83690; 83735; 83880; 84484; 85025; 85610; 86850; 86900; 86901; 87040; 87086; 93005; 93010; 93925-TC; 95860-TC; 97116-GP; 97162-PG; 99284-25

== ENCOUNTER 2016-11-22 05:48 | Inpatient (IN) | payer OTHER ==
[2016-11-22 06:34] VITALS: BMI 18.2
[2016-11-22] MEDS ORDERED: SODIUM CHLORIDE 1,000 ML IV ONE (07:24)
[2016-11-22] MEDS ORDERED: ONDANSETRON 4 MG/2 ML VIAL IVPB ONE (07:24)
[2016-11-22] MEDS ORDERED: ONDANSETRON 4 MG/2 ML VIAL ONE (07:39)
[2016-11-22] MEDS ORDERED: chlordiazePOXIDE HCL 25 MG CAPSULE PO ONE (07:55)
--- NOTE | 2016-11-22 07:55 | PDOC ---
History of Present Illness <Roland Lara - Last Filed: 11/22/16 09:48> - General History Source: Patient, Old Records Exam Limitations: No Limitations - History of Present Illness Initial Comments: 11/22/16 08:16 The patient is a 61-year-old man with a significant past medical history of hypertension, cerebrovascular accident (subarachnoid hemorrhage s/p fall), chronic obstructive pulmonary disease, gastroesophageal reflux disease, prostate cancer (diagnosed well over 1 year ago; has opted out to receiving treatment) and ETOH abuse who presents to the emergency department for further evaluation of persistent left leg weakness and bowel/bladder incontinence. Patient states that his symptoms started approximately 3 weeks ago. He came to this hospital for evaluation and was admitted on 11/01. During admission, patient had a full Neurological workup including an EMG and a lumbar spine CT done which were indicative for severe peroneal neuropathy, L1 compression fracture and L1and s1 nerve impingement, respectively. Patient was discharged and was sent to physical therapy. Since discharge, he states that his symptoms had subsided until yesterday. He reports bowel/bladder incontinence. He states that he is able to feel the urge to go but is unable to go on command. His bowel incontinence is reported to appear has diarrhea (described as loose watery stools without noted blood or melena). He reports being bowel/bladder incontinent every half an hour for the past 24 hours. He also reports experiencing nausea, vomiting (no blood), heartburn and an episode of cold sweats (for an hour) but attributes these symptoms to running out of his Protonix a few days ago. He denies abdominal pain, dysuria, hematuria, flank pain, testicular pain or penile discharge. He also reports feeling slightly short of breath but attributes this to his history of COPD. He denies chest pain, headache,dizziness, lightheadedness, cough. Allergies: No Known Drug Allergies. No Known Food Allergies Past Surgical History: Appendectomy. Social History: Current everyday cigarette smoker(2 packs/day). Daily ETOH use ( multiple glasses of Scotch; last drink yesterday). Former cocaine use. Primary Care Physician: Dr. Lorenzo Beltran / <Lashell Gallardo - Last Filed: 11/22/16 11:26> - General Stated Complaint: DIARRHEA Time Seen by Provider: 11/22/16 07:12 Past History - Past Medical History Cancer: Yes (prostate) CVA: (SUBARACHNOID HEMORRHAGE AFTER A FALL) COPD: Yes GI Disorders: Yes (gerd, ulcers in esophagus) Disorders: No HTN: Yes Liver Disease: (HEPATOMEGALY; ABNORMAL LIVER FUNCTION TEST) Psychiatric Problems: Yes (anxiety) Thyroid Disease: No - Surgical History Appendectomy: Yes (at age 3) - Immunization History Immunization Up to Date: Yes - Psycho/Social/Smoking Cessation Hx Anxiety: Yes Suicidal Ideation: No Smoking History: Former smoker Have you smoked in the past 12 months: Yes Number of Cigarettes Smoked Daily: 30 Information on smoking cessation initiated: No 'Breaking Loose' booklet given: 09/05/16 Hx Alcohol Use: Yes Drug/Substance Use Hx: No Substance Use Type: Alcohol, Cocaine Hx Substance Use Treatment: No <Roland Lara - Last Filed: 11/22/16 09:48> <Lashell Gallardo - Last Filed: 11/22/16 11:26> - Past Medical History Allergies/Adverse Reactions: Allergies Allergy/AdvReac Type Severity Reaction Status Date / Time No Known Allergies Allergy Verified 11/01/16 19:45 Home Medications: Ambulatory Orders Escitalopram Oxalate [Lexapro -] 20 mg PO DAILY 09/05/16 Pantoprazole Sodium [Protonix -] 40 mg PO DAILY 09/05/16 Multivitamins [Multivit ([facility] Formulary)] 1 tab PO DAILY #60 tab 09/14/16 Thiamine HCl [Vitamin B1 -] 100 mg PO DAILY #30 tablet 09/14/16 Amlodipine Besylate [Norvasc -] 10 mg PO DAILY #30 tablet 11/05/16 Gabapentin [Neurontin -] 100 mg PO TID #60 capsule 11/05/16 Nicotine Patch [Nicoderm Patch -] 21 mg TD DAILY #30 patch 11/05/16 Review of Systems - Review of Systems Constitutional: Yes: Chills, Night Sweats. No: Fever Respiratory: Yes: Shortness of Breath (chronic 2/2 COPD). No: Cough Cardiac (ROS): No: Chest Pain ABD/GI: Yes: See HPI Musculoskeletal: Yes: Muscle Weakness Neurological: No: Headache All Other Systems: Reviewed and Negative <Roland Lara - Last Filed: 11/22/16 09:48> *Physical Exam - Vital Signs Last Vital Signs Temp Pulse Resp BP Pulse Ox 97.9 F 105 H 24 106/86 100 11/22/16 06:13 11/22/16 06:13 11/22/16 06:13 11/22/16 06:13 11/22/16 06:13 <Roland Lara - Last Filed: 11/22/16 09:48> - Vital Signs Last Vital Signs Temp Pulse Resp BP Pulse Ox 97.9 F 98 H 18 142/88 98 11/22/16 06:13 11/22/16 07:53 11/22/16 07:53 11/22/16 07:53 11/22/16 07:53 - Physical Exam Comments: 11/22/16 08:18 GENERAL: The patient is awake, alert, and fully oriented. Slightly Unkempt. HEAD: Normal with no signs of trauma. EYES: Pupils equal, round and reactive to light, extraocular movements intact, sclera anicteric, conjunctiva clear with no pallor. ENT: Ears normal, nares patent, oropharynx clear without exudates. Moist mucous membranes. NECK: Normal range of motion, supple without lymphadenopathy, JVD, or masses. LUNGS: Breath sounds equal, clear to auscultation bilaterally. No wheeze/ crackles. HEART: Regular raate with slight tachycardia with a 2/6 systolic ejection murmur that is best heard at the left sternal border. ABDOMEN: Soft/nontender/nondistended. BS wnl. No guarding or rebound. No palpable masses. No hepatosplenomegaly. EXTREMITIES: Normal range of motion, no edema. No clubbing or cyanosis. No cords, erythema, or tenderness. NEUROLOGICAL: Cranial nerves II through XII grossly intact. Normal speech. There is full strength of the right lower extremity. There is a 3-4/5 strength with ankle flexion, otherwise neurovascularly intact. No saddle anesthesia. PSYCH: Normal mood, normal affect. SKIN: Warm, Dry, normal turgor, no rashes or lesions noted. <Lashell Gallardo - Last Filed: 11/22/16 11:26> Heart Score/ECG Review #1 ECG reviewed & interpreted by me at: 07:41 General ECG Interpretation: Sinus Rhythm, Normal Rate (91), Normal Intervals, No acute ischemic changes (T wave flattening I/AVL) Compared to previous ECG there are: No significant change <Roland Lara - Last Filed: 11/22/16 09:48> ED Treatment Course - LABORATORY CBC & Chemistry Diagram: 11/22/16 08:10 11/22/16 08:10 - RADIOLOGY Radiology Studies Ordered: Category Date Time Status LUMBAR SPINE MRI WITH CONTR [MRI] Stat MRI 11/22/16 07:48 Ordered <Roland Lara - Last Filed: 11/22/16 09:48> - LABORATORY CBC & Chemistry Diagram: 11/22/16 08:10 11/22/16 08:10 - ADDITIONAL ORDERS Additional order review: Laboratory Results 11/22/16 07:52 Magnesium Cancelled - Medications Given in the ED: ED Medications Discontinued Medications Generic Name Dose Route Start Last Admin Trade Name Freq PRN Reason Stop Dose Admin Chlordiazepoxide HCl 50 mg 11/22/16 07:55 11/22/16 08:00 Librium - PO 11/22/16 07:56 50 mg ONCE ONE Administration Ondansetron HCl 4 mg 11/22/16 07:24 11/22/16 07:52 Zofran Injection IVPB 11/22/16 07:25 4 mg ONCE ONE Administration <Lashell Gallardo - Last Filed: 11/22/16 11:26> Medical Decision Making - Medical Decision Making 11/22/16 07:51 A portion of this note was documented by scribe services under my direction. I have reviewed the details of the note, within reason, and agree with the documentation with the following case summary and management plan written by me. 61-year-old male with history of alcoholism, extensive smoking history, known prostate CA and recent admission status post discharge about one week ago in the setting of frequent falls, diagnosed with severe peroneal neuropathy after having EMG studies and a CT of the lumbar spine that showed L1 and S1 nerve compression now returns to the hospital with urinary and bowel incontinence for one day. Denies any obviously bloody stool, reports heartburn exacerbation secondary to running out of Protonix a few days ago, no bloody vomit. Sweats with chills yesterday, no abdominal pain. Vitals as noted. Exam as noted without objective findings consistent with cord compression, no saddle anesthesia and unchanged left lower extremity foot weakness 61-year-old male with known prostate CA presents with persistent left leg weakness, and now bladder and bowel incontinence all concerning for cord compression, otherwise well-appearing with normal vital signs. Stat MRI of the lumbar spine Labs, IV fluids Withdrawal prophylaxis from alcohol Will need readmission 11/22/16 09:40 Elevated anion gap with some hyponatremia, hemoglobin otherwise normal. Awaiting MRI, call placed to Dr. Beltran, being covered by Dr. Pond. 11/22/16 09:48 D/W Dr. Pond, accepts for inpatient med/surg. Seen by Dr. Webb of [facility] [place] on prior admission, will reconsult. Awaiting MRI. <Roland Lara - Last Filed: 11/22/16 09:48> - Medical Decision Making 11/22/16 10:[address] Cecilia Pond. Accepts case. <Lashell Gallardo - Last Filed: 11/22/16 11:26> *DC/Admit/Observation/Transfer - Discharge Dispostion Admit: Yes <Roland Lara - Last Filed: 11/22/16 09:48> - Attestations Scribe Attestion: 11/22/16 08:21 Documentation prepared by Lashell Gallardo, acting as pediatric medical assistant for Roland Lara MD. <Lashell Gallardo - Last Filed: 11/22/16 11:26> Diagnosis at time of Disposition: Incontinence, Prostate cancer Peroneal neuropathy Qualifiers: Laterality: left Qualified Code(s): G57.32 - Lesion of lateral popliteal nerve , left lower limb - Discharge Dispostion Condition at time of disposition: Fair - Referrals
[2016-11-22] MEDS ORDERED: chlordiazePOXIDE HCL 25 MG CAPSULE ONE (07:57)
[2016-11-22 08:18] LABS: BASOPHIL 0.2 % (0-2.0); MCH 34.4 pg (25.7-33.7); MCHC 33.6 g/dl (32.0-35.9); MEAN CELL VOLUME 102.4 fl (80-96); MEAN PLT VOLUME 8.4 fl (7.5-11.1); NEUTROPHILS 78.1 % (42.8-82.8); PLATELET COUNT 143 K/MM3 (134-434); RDW 13.5 % (11.9-15.9); WHITE BLOOD COUNT 11.8 K/mm3 (4.0-10.0)
[2016-11-22 08:52] LABS: ALK PHOS 130 U/L (45-117); ANION GAP 24 (8-16); BILIRUBIN,TOTAL 0.5 mg/dL (0.2-1.0); CALCIUM 8.7 mg/dL (8.5-10.1); CO2 19 mmol/L (21-32); CREATININE 0.8 mg/dL (0.7-1.3); GLUCOSE,RANDOM 133 mg/dL (74-106); MAGNESIUM 1.5 mg/dL (1.8-2.4); SGOT/AST 65 U/L (15-37); SGPT/ALT 28 U/L (12-78); TOT PROT 6.2 g/dl (6.4-8.2)
[2016-11-22] MEDS ORDERED: RANITIDINE HCL 150 MG TABLET (FP) PO ONE (09:40)
[2016-11-22] MEDS ORDERED: MAG HYDROX/AL HYDROX/SIMETH 30 ML UNIT-DOSE CUP PO ONE (09:40)
[2016-11-22] MEDS ORDERED: RANITIDINE HCL 150 MG TABLET (FP) ONE ×2 (09:41→09:43)
[2016-11-22] MEDS ORDERED: MAG HYDROX/AL HYDROX/SIMETH 30 ML UNIT-DOSE CUP ONE (09:42)
[2016-11-22] MEDS ORDERED: chlordiazePOXIDE HCL 25 MG CAPSULE PO PRN (12:04)
[2016-11-22] MEDS: SODIUM CHLORIDE 1,000 ML IV SCH (13:14)
--- NOTE | 2016-11-22 13:50 | EKG ---
Test Reason : Blood Pressure : / mmHG Vent. Rate : 091 BPM Atrial Rate : 091 BPM P-R Int : 130 ms QRS Dur : 072 ms QT Int : 354 ms P-R-T Axes : 078 072 089 degrees QTc Int : 435 ms NORMAL SINUS RHYTHM NONSPECIFIC ST AND T WAVE ABNORMALITY ABNORMAL ECG WHEN COMPARED WITH ECG OF 01-NOV-2016 21:06, T WAVE AMPLITUDE HAS DECREASED IN INFERIOR LEADS QT HAS SHORTENED Confirmed by JACKIE CLAYTON, EVANS ([id number]) on 11/22/2016 1:50:09 PM Referred By: Confirmed By:EVANS MEJIA MD
--- NOTE | 2016-11-22 17:59 | HP ---
Admitting History and Physical - Primary Care Physician PCP: Lorenzo Beltran - Admission Chief Complaint: incontinant of urine/bowel History of Present Illness: 61-year-old male with extensive past medical history of alcoholism, extensive smoking history, known prostate CA, and recent admission status post discharge about one week ago in the setting of frequent falls, diagnosed with severe peroneal neuropathy after having EMG studies and a CT of the lumbar spine that showed L1 and S1 nerve compression now returns to the hospital with urinary and bowel incontinence for one day. Denies any obviously bloody stool, reports heartburn exacerbation secondary to running out of Protonix a few days ago, no bloody vomit. Sweats with chills yesterday, no abdominal pain. patient admits he continued to drink Patient admitted to the floor--MRI LS spine ordered--- to rule out cord compression patient seen by me on the floor Chronically ill appearance but comfortable Denies chest pain or shortness of breath Patient well known to me from previous admissions No headache or dizziness Admits continued to smoke and drink History Source: Patient Limitations to Obtaining History: No Limitations - Past Medical History [employer]ER: Yes: Other (Subarrachnoid hemorrhage from fall with head trauma) Cardiovascular: Yes: HTN Pulmonary: Yes: COPD Renal/: Yes: BPH, Cancer (PROSTATE) Psych: Yes: Depression ( OF PARTNER) - Smoking History Smoking history: Current every day smoker Have you smoked in the past 12 months: Yes Aproximately how many cigarettes per day: 20 - Alcohol/Substance Use Hx Alcohol Use: Yes (VODKA-LAST DRINK 11/18/16) History of Substance Use: reports: Cocaine - Social History ADL: Family Assistance History of Recent Travel: No Home Medications - Allergies Allergies/Adverse Reactions: Allergies Allergy/AdvReac Type Severity Reaction Status Date / Time No Known Allergies Allergy Verified 11/01/16 19:45 - Home Medications Home Medications: Ambulatory Orders Escitalopram Oxalate [Lexapro -] 20 mg PO DAILY 09/05/16 Pantoprazole Sodium [Protonix -] 40 mg PO DAILY 09/05/16 Multivitamins [Multivit ([facility] Formulary)] 1 tab PO DAILY #60 tab 09/14/16 Thiamine HCl [Vitamin B1 -] 100 mg PO DAILY #30 tablet 09/14/16 Amlodipine Besylate [Norvasc -] 10 mg PO DAILY #30 tablet 11/05/16 Gabapentin [Neurontin -] 100 mg PO TID #60 capsule 11/05/16 Nicotine Patch [Nicoderm Patch -] 21 mg TD DAILY #30 patch 11/05/16 Family Disease History - Family Disease History Family Disease History: Heart Disease: Father, Sister Review of Systems Unable to obtain ROS, reason: see [facility] - Review of Systems Constitutional: reports: Weakness Eyes: reports: No Symptoms HENT: reports: No Symptoms Neck: reports: No Symptoms Cardiovascular: reports: No Symptoms Respiratory: reports: SOB on Exertion. denies: No Symptoms Gastrointestinal: reports: Diarrhea Genitourinary: reports: Frequency Musculoskeletal: reports: Back Pain Psychiatric: reports: Depression Physical Examination Vital Signs: Vital Signs Temperature 97.9 F 11/22/16 06:13 Pulse Rate 102 H 11/22/16 11:12 Respiratory Rate 18 11/22/16 11:12 Blood Pressure 150/83 11/22/16 11:12 O2 Sat by Pulse Oximetry (%) 100 11/22/16 11:12 Constitutional: Yes: No Distress, Calm Eyes: Yes: Conjunctiva Clear HENT: Yes: WNL. No: Atraumatic Neck: Yes: Supple Cardiovascular: Yes: Regular Rate and Rhythm Respiratory: Yes: Diminished Gastrointestinal: Yes: Normal Bowel Sounds, Soft Edema: No Neurological: Yes: Alert, Cran Nerves II-XII Intact, Other (moves all extremities) Imaging - Results EKG: Report Reviewed Problem List - Problems (1) Chronic alcohol dependence, continuous Code(s): F10.20 - ALCOHOL DEPENDENCE, UNCOMPLICATED (2) Depression Code(s): F32.9 - MAJOR DEPRESSIVE DISORDER, SINGLE EPISODE, UNSPECIFIED (3) Incontinence Code(s): R32 - UNSPECIFIED URINARY INCONTINENCE (4) GERD without esophagitis Code(s): K21.9 - GASTRO-ESOPHAGEAL REFLUX DISEASE WITHOUT ESOPHAGITIS (5) COPD (chronic obstructive pulmonary disease) Code(s): J44.9 - CHRONIC OBSTRUCTIVE PULMONARY DISEASE, UNSPECIFIED (6) Prostate cancer Code(s): C61 - MALIGNANT NEOPLASM OF PROSTATE Assessment/Plan patient has multiple medical issues as documented MRI LS spine has been ordered--Exam not consistent with cord compression but will review MRI when available Multiple times consulled about alcohol cessation as well as COPD Banana bag Fluids Follow-up labs Physical therapy Further recommendations pending clinical course
[2016-11-22] MEDS ORDERED: MAGNESIUM SULF 50% (8.12 MEQ/2 ML-1 GM VIAL) IVPB ONE (18:01)
[2016-11-22] MEDS ORDERED: PANTOPRAZOLE 40 MG TABLET (FP) PO ONE (18:40)
--- NOTE | 2016-11-22 20:02 | CONSULT ---
Consult - text type - Consultation Consultation Note: NEUROLOGY CONSULTATION is greatly appreciated: This 61 yo RH man with h/o HTN, Gerd, Depression, COPD and chronic alcoholism still smokes 2 PPD. H/O Traumatic SAH after a fall with head trauma. On amlodipine, lexapro, pantoprazole, thiamine, nicoderm, and gabapentin. Admitted here a few weeks ago after developing "unsteadiness." W/u showed a Left peroneal palsy. Also chronic L1 vertebral collapse on LS MRI (without back pain.) Now readmitted with "incontinence" of bowel and bladder. Pt. notes he can feel the need to urinate and move his bowels but "thinks it is a mobility issue" as he "can't make it to the toilet in time." MRI of LS spine (reviewed, not yet reported): Normal alignment. Chronic spondylytic and schlerotic changes. Partial collapse of LI without extruded fragment or spinal stenosis. T12L1 disc herniation with mild posterior displacement of thecal contents but no significant spinal stenosis. TANNER: Neg straight leg raising. Normal neck ROM. No LS palp tenderness. Rectal exam not done. NEURO: MS/Speech: Normal CN II-XII: Normal Motor. No drift. Isolated weakness of Left ankle dorsiflexion, eversion and toe extension. Left anle inversion and plantarflexion and all right leg groups are Normal. Normal kJ's and AJ's. Coord: Normal Sensory: Normal to vibration in both feet. Romberg - Pinprick felt in both feet and buttocks Stands without assistance. Left footdrop and steppage. IMP: Left Peroneal Mononeuropathy with footdrop. L 1 vertebral collapse, probably old, without clinical signs of caudae equina syndrome. Suggest: Neurosurgical consultation. Check B12, TSH, MG++ PT eval for gait with walker and fitting of Left AFO Repeat EMG/NCS. Mobilize OOB to chair. Bedside commode. Thank you very much, Jimi Workman MD
[2016-11-22] MEDS: FOLIC ACID INJECTION - 1 MG, THIAMINE HCL 100 MG, MULTIVIT INJECTION ADULT 10 ML in SOD... IVPB SCH (20:24)
[2016-11-23] MEDS: SODIUM CHLORIDE 1,000 ML IV SCH (04:36)
[2016-11-23 07:01] LABS: BASOPHIL 0.1 % (0-2.0); EOSINOPHIL 0.5 % (0-4.5); MCHC 34.8 g/dl (32.0-35.9); MEAN CELL VOLUME 100.5 fl (80-96); NEUTROPHILS 77.7 % (42.8-82.8); RDW 13.4 % (11.9-15.9); WHITE BLOOD COUNT 8.7 K/mm3 (4.0-10.0)
[2016-11-23 07:41] LABS: ALBUMIN 2.7 g/dl (3.4-5.0); ALK PHOS 109 U/L (45-117); ANION GAP 11 (8-16); BILIRUBIN,TOTAL 0.8 mg/dL (0.2-1.0); CALCIUM 7.8 mg/dL (8.5-10.1); CO2 29 mmol/L (21-32); CREATININE 0.5 mg/dL (0.7-1.3); GLUCOSE,RANDOM 96 mg/dL (74-106); MAGNESIUM 1.9 mg/dL (1.8-2.4); SGOT/AST 49 U/L (15-37); SGPT/ALT 22 U/L (12-78); TOT PROT 5.6 g/dl (6.4-8.2)
[2016-11-23 09:02] LABS: PLATELET COUNT 98 K/MM3 (134-434)
[2016-11-23 09:04] LABS: MEAN PLT VOLUME 8.5 fl (7.5-11.1); PLATELET ESTIMATE DECREASED (NORMAL)
[2016-11-23] MEDS: MULTIVITAMINS (DAILY MVI) TABLET (FP) PO SCH (09:45)
[2016-11-23] MEDS: ENOXAPARIN NA (PORCINE) 40 MG/0.4 ML DISP.SYRIN SQ SCH (09:46)
[2016-11-23] MEDS ORDERED: THIAMINE HCL 200 MG/2 ML VIAL IVPB SCH (10:00)
[2016-11-23] MEDS ORDERED: PANTOPRAZOLE 40 MG TABLET (FP) PO SCH (10:00)
--- NOTE | 2016-11-23 10:30 | PN ---
Progress Note, Physician Chief Complaint: No distress Events noted Neurology consult appreciated Pt states it is difficult to walk to the bathroom because of his foot drop and unsteady gait He can feel the urge to have a bm /urinate but loses control as he does not get to the bathroom on time still drinking alcohol-- last drink was 2 days ago - Current Medication List Current Medications: Active Medications Chlordiazepoxide HCl (Librium -) 25 mg PO Q6H PRN PRN Reason: WITHDRAWAL(CONT SUBST) Enoxaparin Sodium (Lovenox -) [address] [facility] Last Admin: 11/23/16 09:46 Dose: 40 mg Sodium Chloride (Normal Saline -) 1,000 mls @ 83 mls/hr IV ASDIR [facility] Last Admin: 11/23/16 04:36 Dose: 83 mls/hr Multivitamins/Minerals/Vitamin C (Tab-A-Vit -) [address] [facility] Last Admin: 11/23/16 09:45 Dose: 1 tab Pantoprazole Sodium (Protonix -) [address] [facility] Last Admin: 11/23/16 09:46 Dose: 40 mg - Objective Vital Signs: Vital Signs Temperature 99.2 F 11/23/16 05:37 Pulse Rate 81 11/23/16 05:37 Respiratory Rate 18 11/23/16 05:37 Blood Pressure 146/78 11/23/16 05:37 O2 Sat by Pulse Oximetry (%) 95 11/22/16 21:00 Constitutional: Yes: No Distress, Calm Cardiovascular: Yes: Regular Rate and Rhythm Respiratory: Yes: Diminished. No: Rales, Rhonchi Gastrointestinal: Yes: Normal Bowel Sounds, Soft. No: Distention, Tenderness Edema: No Neurological: Yes: Alert, Oriented, Unsteady Gait, Other (left foot drop). No: Tremors, Weakness Psychiatric: Yes: Alert, Oriented Labs: CBC, BMP 11/23/16 06:00 11/23/16 06:00 - ....Imaging MRI: Report Reviewed Problem List - Problems (1) COPD (chronic obstructive pulmonary disease) Code(s): J44.9 - CHRONIC OBSTRUCTIVE PULMONARY DISEASE, UNSPECIFIED (2) Depression Code(s): F32.9 - MAJOR DEPRESSIVE DISORDER, SINGLE EPISODE, UNSPECIFIED (3) GERD without esophagitis Code(s): K21.9 - GASTRO-ESOPHAGEAL REFLUX DISEASE WITHOUT ESOPHAGITIS (4) Peroneal neuropathy Code(s): G57.30 - LESION OF LATERAL POPLITEAL NERVE, UNSPECIFIED LOWER LIMB Qualifiers: Laterality: left Qualified Code(s): G57.32 - Lesion of lateral popliteal nerve, left lower limb Assessment/Plan PLAN Not consistent with cauda equina syndrome Mostly due to peroneal neuropathy and inability walk steady EMG to be repeated per Neurology Neurosurgeon eval PT eval Will need STR for gait training spoke with mattress spring encaser DVT prophylaxis Librium PRN
[2016-11-23] MEDS: FOLIC ACID INJECTION - 1 MG, THIAMINE HCL 100 MG, MULTIVIT INJECTION ADULT 10 ML in SOD... IVPB SCH (10:32)
[2016-11-23] MEDS: CYANOCOBALAMIN 1,000 MCG TABLET (FP) PO SCH (11:31)
[2016-11-23] MEDS: SODIUM CHLORIDE 0.9%/KCL 1,000 ML IV SCH (11:31)
[2016-11-23] MEDS: ESCITALOPRAM OXALATE 10 MG TABLET (FP) PO SCH (11:31)
--- NOTE | 2016-11-23 15:31 | PN ---
Progress Note (short form) - Note Progress Note: NEUROSURGERY Pt seen on prior admission 2 weeks ago. Had complained of L foot weakness form the week prior at the time. CT scan demonstrated a chronic L1 compression fx ( nutritional vs osteoporotic) and L5-S1 DDD. EMG confirmed L peroneal neuropathy. Pt went home last week and started drinking again and noted urinary and bowel incontinence. PMH significant for alcoholism, smoking, and known prostate CA, and recent admission status post discharge about one week ago in the setting of frequent falls, diagnosed with severe peroneal neuropathy after having EMG studies. Denies any bloody stool, but reports dyspepsia secondary to running out of Protonix and drinking. No N/V. fever, chills. Denies LBP or sciatica. PE: AF, VSS HEENT- NC/AT; Lungs: CTA B; Abd: benign, no sign of DVT; Ext- no sign of DVT NEURO- A/A/Ox4; CN- intact; Motor- 5/5 except L TA and foot ev 2; Sensation- decreased distal vibration; no numbness to LT; DTR- 2+ LS spine MRI- chronic L1 compression fx, L5-S1 marked DDD with mild narrowing; minimal L5-S1 spondylolisthesis; no canal compromise; no cauda equina compression CT scan (2 weeks ago)- L1 fx, L5-S1 DDD WBC 8.7, Hgb 11.3; Na 138; BUN 12, Cr 0.5 L peroneal neuropathy and alcoholic neuropathy without radiculopathy or cauda equina compression Not a neurosurgical candidate two weeks ago, which remains unchanged today Condition is medical and nutritional in nature and should be addressed as such Pt aware of the above
[2016-11-23] MEDS: PANTOPRAZOLE 40 MG TABLET (FP) PO SCH (22:05)
[2016-11-24] MEDS: SODIUM CHLORIDE 0.9%/KCL 1,000 ML IV SCH ×3 (01:04→19:29)
--- NOTE | 2016-11-24 09:25 | CONS ---
DATE OF CONSULTATION AND ELECTRODIAGNOSTIC STUDIES: 11/23/2016 HISTORY OF PRESENT ILLNESS: The patient is a 61-year-old man who is known from prior admission to [facility] recently and has a history of a left foot drop due to peroneal neuropathy as well as underlying axonal sensorimotor polyneuropathy, possibly due to his underlying alcohol abuse, who was readmitted on November 22 with bowel incontinence after he started to drink alcohol again. Patient had undergone EMG back on November 03, 2016, and has undergone MRI of the lumbar spine as well as neurologic and neurosurgical evaluation. On admission, WBCs were slightly elevated at 11.8. Currently, his WBC is 8.7, hemoglobin stable at 11.3, he has an elevated MCV of 100.5, and his platelet count is low at 98,000. Chemistry which was initially abnormal with elevation of BUN 31, creatinine 0.8 as well as a low CO2 of 19 and a low sodium of 133 have improved. His blood work done today showed improvement in sodium to 138, although his potassium is slightly low at 3.4. His BUN fell from 31 to 12, creatinine 0.5, and CO2 normalized to 29. He has a low albumin of 2.7. Normal vitamin B12 of 767. On admission, alcohol was 32.3, highly elevated. The patient complains of bowel incontinence which he states he does not know the etiology of. REVIEW OF PAST MEDICAL AND SURGICAL HISTORY: As above. 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 History of hypertension, COPD, prostate cancer, depression, and a subarachnoid hemorrhage. SOCIAL HISTORY: Premorbidly, he apparently was able to ambulate without assistive device, but currently he has been having difficulty ambulating due to the foot drop. He has recently been in inpatient rehabilitation but apparently on last admission was discharged home. He states that currently he may be going to a half-way facility for short-term rehabilitation. REVIEW OF SYSTEMS: No lightheadedness, dizziness. No blurry vision, double vision. No nausea, vomiting, difficulty swallowing, difficulty chewing. No chest pain or shortness of breath. No fever or chills. Again, he is incontinent of bowel. No urinary complaints. He has some numbness in the left foot, weakness in the left foot. No complaints of back pain. REVIEW OF MRI OF THE LUMBAR SPINE: He does have chronic compression fracture, L1, and some disk protrusion but no canal stenosis. There is some bilateral neural foraminal narrowing, right more than left. PHYSICAL EXAMINATION: General: Petite man seen both sitting, standing, ambulating a few steps. HEENT: Normocephalic and atraumatic. His extraocular muscles appear intact. Neck: Supple. Extremities: Without any pitting edema or calf tenderness. Skin: Without any rash or breakdown. Neuromuscular: He is awake, alert, cooperative. Cranial nerves II-XII grossly intact. He has got good strength and range in his upper extremities with normal sensation. In the lower extremities, he has left distal weakness, 0 to 1 dorsiflexor strength, but otherwise good strength and range of motion, diminished sensation in the webspace between the 1st and 2nd digit on the left foot, absent ankle jerk. Symmetric knee jerk reflexes. Steppage gait on the left. Distally, he has decreased cold temperature and vibratory sense. RESULTS OF ELECTROMYOGRAPHIC NERVE CONDUCTION STUDIES: Please refer to report for details. OVERALL IMPRESSION: 1. Severe left peroneal neuropathy with guarded to poor prognosis. 2. Axonal sensorimotor polyneuropathy, possibly due to nutritional deficiency or alcohol. 3. Left foot drop. 4. No evidence of lumbosacral radiculopathy. 5. Gait disorder. 6. Bowel incontinence. 7. History of alcohol abuse. 8. History of chronic obstructive pulmonary disease. 9. History of prostate cancer. PLAN/SUGGESTION: 1. Continue physical therapy. 2. GI workup regarding bowel incontinence. 3. Short-term rehabilitation in half-way facility. 4. Left AFO as outpatient as they are not covered while patient is in the hospital. 5. Monitor CBC. 6. Monitor chemistry. 7. Nutritional support. 8. Continue Lovenox for DVT prophylaxis. Thank you for this consultation. LISA SCOTT M.D. [facility]/[id number]
[2016-11-24] MEDS: ENOXAPARIN NA (PORCINE) 40 MG/0.4 ML DISP.SYRIN SQ SCH (10:00)
[2016-11-24] MEDS: ESCITALOPRAM OXALATE 10 MG TABLET (FP) PO SCH (10:01)
[2016-11-24] MEDS: CYANOCOBALAMIN 1,000 MCG TABLET (FP) PO SCH (10:01)
[2016-11-24] MEDS: PANTOPRAZOLE 40 MG TABLET (FP) PO SCH ×2 (10:01→21:27)
[2016-11-24] MEDS: MULTIVITAMINS (DAILY MVI) TABLET (FP) PO SCH (10:01)
--- NOTE | 2016-11-24 10:12 | PN ---
Progress Note (short form) - Note Progress Note: SUBJECTIVE: Patient seen and examined. Chart reviewed. Patient feels significantly improved. Eating better. Denies chest pain. OBJECTIVE: Vital Signs 11/24/16 06:00 Temperature 98.4 F Pulse Rate 73 Respiratory 20 Rate Blood Pressure 149/83 Intake & Output 11/23/16 11/24/16 11/24/16 23:59 07:59 15:59 Intake Total 1282 664 Output Total 700 Balance 1282 -36 Weight 56.245 kg 56.245 kg Intake: IV 1282 664 Ns+20 Meq KCl - 1,000 ml 1282 664 @ 83 mls/hr IV ASDIR [facility] Rx#:[id number] IVPB 0 0 Output: Urine 700 Void 700 Other: Voiding Method Diaper Diaper # Unmeasured Voids Void 3 Weight Measurement Method Standing Scale Active Medications Chlordiazepoxide HCl (Librium -) 25 mg PO Q6H PRN PRN Reason: WITHDRAWAL(CONT SUBST) Cyanocobalamin (Vitamin B12 -) 1,000 mcg PO DAILY [facility] Last Admin: 11/24/16 10:01 Dose: 1,000 mcg Enoxaparin Sodium (Lovenox -) 40 mg SQ DAILY [facility] Last Admin: 11/24/16 10:00 Dose: 40 mg Escitalopram Oxalate (Lexapro -) 10 mg PO DAILY [facility] Last Admin: 11/24/16 10:01 Dose: 10 mg Potassium Chloride/Sodium Chloride (Ns+20 Meq Kcl -) 1,000 mls @ 83 mls/hr IV ASDIR [facility] Last Admin: 11/24/16 01:04 Dose: 83 mls/hr Multivitamins/Minerals/Vitamin C (Tab-A-Vit -) 1 tab PO DAILY [facility] Last Admin: 11/24/16 10:01 Dose: 1 tab Pantoprazole Sodium (Protonix -) 40 mg PO BID [facility] Last Admin: 11/24/16 10:01 Dose: 40 mg CBC, BMP 11/23/16 06:00 11/23/16 06:00 PHYSICAL EXAMINATION: Constitutional: Yes: No Distress, Calm Cardiovascular: Yes: Regular Rate and Rhythm Respiratory: Yes: Diminished. Few Scattered Rhonchi. Gastrointestinal: Yes: Normal Bowel Sounds, Soft. No: Distention, Tenderness Edema: No Neurological: Yes: Alert, Oriented, Unsteady Gait, Other (left foot drop). No: Tremors, Weakness Psychiatric: Yes: Alert, Oriented ASSESSMENT & PLAN: - Overall better. - Physical Therapy. - Nebulizer treatment. - Patient is not using Librium and will discontinue. - Anticipate discharge tomorrow if he continues to improve. - Home versus Short term Rehab. - Pending physical therapy evaluation. Documentation prepared by Lashell Gallardo, acting as a medical assistant supervisor for Lorenzo Beltran MD. <Lashell Gallardo - Last Filed: 11/24/16 10:33> Problem List - Problems (1) Chronic alcohol dependence, continuous Code(s): F10.20 - ALCOHOL DEPENDENCE, UNCOMPLICATED (2) Depression Code(s): F32.9 - MAJOR DEPRESSIVE DISORDER, SINGLE EPISODE, UNSPECIFIED (3) Incontinence Code(s): R32 - UNSPECIFIED URINARY INCONTINENCE (4) GERD without esophagitis Code(s): K21.9 - GASTRO-ESOPHAGEAL REFLUX DISEASE WITHOUT ESOPHAGITIS (5) COPD (chronic obstructive pulmonary disease) Code(s): J44.9 - CHRONIC OBSTRUCTIVE PULMONARY DISEASE, UNSPECIFIED (6) Prostate cancer Code(s): C61 - MALIGNANT NEOPLASM OF PROSTATE <Lorenzo Beltran - Last Filed: 11/24/16 10:12>
[2016-11-24] MEDS ORDERED: ALBUTEROL SO4 0.083% IH SOL 2.5 MG/3 ML VIAL.NEB. NEB PRN (10:22)
--- NOTE | 2016-11-24 18:43 | PN ---
Progress Note (short form) - Note Progress Note: NEUROLOGY FOLLOW-UP: Events reviewed. Patient examined. Dr. Webb's consultation read and appreciated. Patient ambulating with walker. Told AFO would be fitted as outpt. No trouble with bowel or bladder continence. Able to urinate in urinal without difficulty. EXAM: Left ankle dorsiflexion and eversion 3/5. IMP: left peroneal mononeuropathy. No clinical evidence of incontinence to suggest Caudae equina syndrome. Suggest: D/C for out patient rehad and left AFO/ walker. Neuro f/u as out patient Thank you very much, Jimi Workman MD
[2016-11-25] MEDS: SODIUM CHLORIDE 0.9%/KCL 1,000 ML IV SCH (06:22)
[2016-11-25] MEDS: ENOXAPARIN NA (PORCINE) 40 MG/0.4 ML DISP.SYRIN SQ SCH (10:15)
[2016-11-25] MEDS: CYANOCOBALAMIN 1,000 MCG TABLET (FP) PO SCH (10:15)
[2016-11-25] MEDS: MULTIVITAMINS (DAILY MVI) TABLET (FP) PO SCH (10:15)
[2016-11-25] MEDS: PANTOPRAZOLE 40 MG TABLET (FP) PO SCH (10:15)
[2016-11-25] MEDS: ESCITALOPRAM OXALATE 10 MG TABLET (FP) PO SCH (10:16)
--- NOTE | 2016-11-25 11:24 | DS ---
Physical Examination Vital Signs: Vital Signs Temperature 97.4 F L 11/25/16 06:19 Pulse Rate 75 11/25/16 06:19 Respiratory Rate 18 11/25/16 06:19 Blood Pressure 140/85 11/25/16 06:19 O2 Sat by Pulse Oximetry (%) 98 11/24/16 20:52 Constitutional: Yes: No Distress, Calm Cardiovascular: Yes: Regular Rate and Rhythm Respiratory: Yes: Diminished Gastrointestinal: Yes: Normal Bowel Sounds, Soft. No: Distention, Tenderness Edema: No Labs: CBC, BMP 11/23/16 06:00 11/23/16 06:00 Discharge Summary Reason For Visit: MALIGNANT AAMIR PLASM OF PROSTATE,INCONTINENCE Current Active Problems COPD (chronic obstructive pulmonary disease) (Acute) Cocaine abuse (Acute) Depression (Acute) GERD without esophagitis (Acute) H/O fall (Acute) Incontinence (Acute) Peroneal neuropathy (Acute) Prostate cancer (Acute) Subarachnoid hemorrhage following injury (Acute) Hospital Course: Admitted for unsteady gait, weakness of left leg. Also he had incontinence of bladder and bowel-- MRI spine-- no evidence of Cauda equina syndrome. Pt was seen by Neurology and Neurosurgeon He has peroneal neuropathy and nutrtional deficiency due to chronic alcohol use Pt 's sister was informed today about pt's condition. He will have [facility] come to his home and also will need outpt PT. outpt alcohol rehab advised for the pt spoke with case maker today stable for dc home-- time spent 40 min for preparation of discharge Condition: Fair - Instructions Diet, Activity, Other Instructions: WILL NEED OUT PATIENT REHAB FOR NEUROPATHY Referrals: Lorenzo Beltran MD [Primary Care Provider] - Disposition: HOME - Home Medications Comprehensive Discharge Medication List: Ambulatory Orders Escitalopram Oxalate [Lexapro -] 20 mg PO DAILY 09/05/16 Pantoprazole Sodium [Protonix -] 40 mg PO DAILY 09/05/16 Multivitamins [Multivit ([facility] Formul[facility])] 1 tab PO DAILY #60 tab 09/14/16 Thiamine HCl [Vitamin B1 -] 100 mg PO DAILY #30 tablet 09/14/16 Amlodipine Besylate [Norvasc -] 10 mg PO DAILY #30 tablet 11/05/16 Gabapentin [Neurontin -] 100 mg PO TID #60 capsule 11/05/16 Nicotine Patch [Nicoderm Patch -] 21 mg TD DAILY #30 patch 11/05/16
[2016-11-25 13:58] VITALS: BP 122/94
[2016-11-25 14:28] VITALS: PULSE 78; TEMP 98.7
== END 2016-11-25 18:57 | disposition home or self-care (01) | DRG 48 ==
LOC: JER 05:48 → JERBED 10:27 → J7W 12:07
PROVIDERS: ADMIT Internal Medicine; ATTEND Internal Medicine
DX: G57.92 Unspecified mononeuropathy of left lower limb (principal); R26.81 Unsteadiness on feet; E63.8 Other specified nutritional deficiencies; F10.20 Alcohol dependence, uncomplicated; R32 Unspecified urinary incontinence; R15.9 Full incontinence of feces; K21.9 Gastro-esophageal reflux disease without esophagitis; J44.9 Chronic obstructive pulmonary disease, unspecified; F32.9 Major depressive disorder, single episode, unspecified; F17.210 Nicotine dependence, cigarettes, uncomplicated; G58.8 Other specified mononeuropathies; M21.372 Foot drop, left foot; M48.56XD Collapsed vertebra, not elsewhere classified, lumbar region, subsequent encounter for fracture with routine healing; G57.32 Lesion of lateral popliteal nerve, left lower limb; M51.37 Other intervertebral disc degeneration, lumbosacral region; G62.1 Alcoholic polyneuropathy; Z68.1 Body mass index [BMI] 19.9 or less, adult
CPT/HCPCS: 36415; 72149-TC; 80053; 80307; 82607; 83690; 83735; 84425; 85025; 93005; 93010; 94640; 95860-TC; 97116-GP; 97161-GP; 99284-25; A9576